=== PATIENT | male | born 1995 | race Caucasian/White ===

== ENCOUNTER 2017-06-25 00:15 | Emergency (ER) | payer OTHER ==
[~2017-06-25] VITALS: Ht 177.8 cm; Wt 67.1 kg
[2017-06-25 00:23] VITALS: BP 112/67
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
[2017-06-25 01:43] VITALS: BP 112/67
--- NOTE | 2017-06-25 01:44 | NUR ---
Patient discharged with v/s stable. Written and verbal after care instructions given and explained. Patient alert, oriented and verbalized understanding of instructions. Ambulatory with steady gait. All questions addressed prior to discharge. ID band removed. Patient advised to follow up with PMD. Rx of BACTRIM DS 800MG, AFRIN NO DRIP SINUS 0.05% NASAL SPRAY given. Patient educated on indication of medication including possible reaction and side effects. Opportunity to ask questions provided and answered.
== END 2017-06-25 01:43 | disposition home or self-care (01) ==
LOC: MED 00:15
DX: S02.2XXA Fracture of nasal bones, initial encounter for closed fracture (principal); W51.XXXA Accidental striking against or bumped into by another person, initial encounter; Y93.89 Activity, other specified; Y92.89 Other specified places as the place of occurrence of the external cause; Y99.8 Other external cause status
CPT/HCPCS: 70160; 99284

== ENCOUNTER 2017-12-02 17:31 | Emergency (ER) | payer OTHER ==
[~2017-12-02] VITALS: Ht 177.8 cm; Wt 64.4 kg
[2017-12-02 17:37] VITALS: BP 110/85
[2017-12-02] MEDS ORDERED: ACETAMINOPHEN EXTRA STRENGTH 500 MG TAB ONE (17:44)
[2017-12-02] MEDS ORDERED: ONDANSETRON 4 MG ODT PO ONE (17:45)
[2017-12-02] MEDS ORDERED: ACETAMINOPHEN 325 MG TAB PO ONE (17:50)
--- NOTE | 2017-12-02 17:51 | NUR ---
pt to lobby awaiting avaiable bed. gcs=15. rr are even and unlabored. no acute distress at this time.
--- NOTE | 2017-12-02 19:14 | NUR ---
TO ER BED 2
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
[2017-12-02] MEDS ORDERED: KETOROLAC 30 MG/ML VIAL IVP ONE (19:30)
[2017-12-02] MEDS ORDERED: NACL 0.9% 2,000 ML IV ONE (19:30)
[2017-12-02 20:26] VITALS: BP 133/74
--- NOTE | 2017-12-02 20:26 | NUR ---
Patient discharged with v/s stable. Written and verbal after care instructions given and explained. Patient alert, oriented and verbalized understanding of instructions. Ambulatory with steady gait. All questions addressed prior to discharge. ID band removed. Patient advised to follow up with PMD. Rx of ZOFRAN, AMOXICILLIN, ACETAMINOPHEN, AND NAPROSYN given. Patient educated on indication of medication including possible reaction and side effects. Opportunity to ask questions provided and answered.
== END 2017-12-02 20:26 | disposition home or self-care (01) ==
LOC: MED 17:31
DX: J02.9 Acute pharyngitis, unspecified (principal); R50.9 Fever, unspecified
CPT/HCPCS: 87081; 96361; 96374; 99284; J1885; J7030; S0119